=== PATIENT | male | born 1970 | race Caucasian/White ===

== ENCOUNTER 2022-05-05 19:11 | Emergency (ER) | payer OTHER ==
[~2022-05-05] VITALS: Ht 177.8 cm; Wt 80.7 kg
--- NOTE | 2022-05-05 19:35 | NUR ---
BIBS C/O TROUBLE SWALLOWING X1 MONTH , O2SAT 100% ROOM AIR. PATIENT IS AAOX4. ABLE TO MAKE NEEDS KNOWN. AMBULATORY. VITALS CHECKED AND PLACED COMFORTABLY IN CHAIR
--- NOTE | 2022-05-05 20:43 | NUR ---
IV CANNULA G18 INSERTED ON RIGHT AC. BLOOD DRAWN AND SENT TO LAB
[2022-05-05] MEDS ORDERED: IOHEXOL-300 100 ML VIAL IV ONE (20:58)
[2022-05-05] MEDS ORDERED: IV NS 0.9% 250 ML IV ONE (20:59)
[2022-05-05] MEDS ORDERED: CT SWABBABLE VALVE TRANS SET 1 EA INFUS.SET MC ONE (20:59)
--- NOTE | 2022-05-05 21:00 | NUR ---
BROUGHT TO CT DEPT
[2022-05-05 21:18] LABS: BASOPHILS # (AUTO) 0.1 K/uL (0.0-0.2); BASOPHILS % (AUTO) 1.4 % (0.0-2.0); HEMATOCRIT 46 % (39-51); HEMOGLOBIN 15.9 g/dL (13.5-17.5); LYMPHOCYTES # (AUTO) 2.9 K/uL (0.8-4.8); LYMPHOCYTES % (AUTO) 36.4 % (20.0-44.0); MEAN CORPUSCULAR HGB CONC 35 g/dl (31.0-36.0); MEAN CORPUSCULAR VOLUME 91 fL (80-96); MONOCYTES # (AUTO) 0.5 K/uL (0.1-1.30); MONOCYTES % (AUTO) 5.9 % (2.0-12.0); NEUTROPHILS # (AUTO) 4.2 K/uL (1.8-8.9); NEUTROPHILS % (AUTO) 53.3 % (43.0-81.0); PLATELET COUNT (AUTO) 220 K/uL (150-450); RED BLOOD CELL COUNT(AUTO) 5.01 MIL/uL (4.5-6.0); WHITE BLOOD COUNT (AUTO) 7.9 K/uL (4.3-11.0)
[2022-05-05 21:35] LABS: CALCIUM, SERUM 8.7 mg/dL (8.5-10.1); POTASSIUM 3.4 mmol/L (3.5-5.1)
[2022-05-05] MEDS ORDERED: IBUP-1955 PO (23:00)
[2022-05-05] MEDS ORDERED: AMOX500C2 PO (23:00)
--- NOTE | 2022-05-05 23:07 | NUR ---
Patient discharged to home in stable condition. Written and verbal after care instructions given. Patient verbalizes understanding of instruction.
--- NOTE | 2022-05-05 23:07 | NUR ---
IV removed. Catheter intact and site benign. Pressure and 4x4 applied to site. No bleeding noted.
[2022-05-05 23:29] VITALS: BP 135/84
== END 2022-05-05 23:30 | disposition home or self-care (01) ==
LOC: ER 19:15
DX: J02.9 Acute pharyngitis, unspecified (principal); R59.0 Localized enlarged lymph nodes; F17.200 Nicotine dependence, unspecified, uncomplicated
CPT/HCPCS: 99285; 70491; 99406; 85025; 80048; 36415; J7050; Q9967